=== PATIENT | male | born 1980 | race Caucasian/White ===

== ENCOUNTER 2018-01-02 21:22 | Emergency (ER) | payer BC ==
[~2018-01-02] VITALS: Ht 170.2 cm; Wt 65.8 kg
[2018-01-03] MEDS ORDERED: Miralax17 GM PO (03:13)
== END 2018-01-03 03:45 | disposition home or self-care (01) ==
LOC: ER 21:22
DX: K59.00 Constipation, unspecified (principal); Z87.891 Personal history of nicotine dependence
CPT/HCPCS: 74019